=== PATIENT | male | born 1985 | race Caucasian/White ===

== ENCOUNTER 2020-03-29 14:02 | Inpatient (IN) | payer OTHER ==
--- NOTE | 2020-03-29 14:40 | BHS.RME ---
Substance Use & Tx History - Substance Use History Alcohol Substance amount: 2 pints Anne Marie Frequency of use: Daily Substance route: Oral Date of Last Use: 03/29/20 (First use age 15 y. Seizure 3 y ago. Many blackouts, last was last night. 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) Nicotine Substance amount: 1/2 pack Frequency of use: Daily Substance route: Smoking Date of Last Use: 03/29/20 (Began age 15y) - Last Treatment Date of last treatment: December 2017, [facility] Treatment type: Substance Use Disorder (JOVANA) Where was last treatment: Detox Physical/Psych/Mental Status - Behavior General Behavior: Increased activity (restlessness, agitation) Eye Contact: Normal - Cooperativeness Cooperativeness: Cooperative - Thinking Thought Processes: Tight Thought content: Future oriented - Physical Health Problems Is patient presently having any pain?: No Does patient presently have any injuries (include location): No CIWA Nausea/Vomitin Muscle Tremors: 1-None Visible, but [place] Anxiety: 3 Agitation: 3 Paroxysmal Sweats: No Perspiration Orientation: 0-Oriented Tacttile Disturbances: 0-None Auditory Disturbances: 0-None Visual Disturbances: 0-None Headache: 0-None Present CIWA-Ar Total Score: 10
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
[2020-03-29] MEDS ORDERED: chlordiazePOXIDE HCL 25 MG CAPSULE ONE (15:49)
[2020-03-29] MEDS ORDERED: MENTHOL/PHENOL 1 EACH UD MM PRN (15:51)
[2020-03-29] MEDS ORDERED: ACETAMINOPHEN 325 MG TABLET (FP) PO PRN ×2 (15:51)
[2020-03-29] MEDS ORDERED: MAG HYDROX/AL HYDROX/SIMETH 30 ML UNIT-DOSE CUP PO PRN (15:51)
[2020-03-29] MEDS ORDERED: ONDANSETRON *ODT* 4 MG TABLET SL ONE ×2 (15:51→22:56)
[2020-03-29] MEDS ORDERED: MAGNESIUM CITRATE 300 ML BOTTLE PO PRN (15:51)
[2020-03-29] MEDS ORDERED: MAGNESIUM HYDROX 2400MG/30ML ORAL SUSPENSION 30 ML CUP PO PRN (15:51)
[2020-03-29] MEDS ORDERED: NICOTINE POLACRILEX 2 MG GUM BUC PRN (15:51)
[2020-03-29] MEDS ORDERED: METHOCARBAMOL 500 MG TABLET PO PRN (15:51)
[2020-03-29] MEDS ORDERED: chlordiazePOXIDE HCL 25 MG CAPSULE PO PRN (15:51)
[2020-03-29] MEDS ORDERED: IBUPROFEN 400 MG TABLET (FP) PO PRN (15:51)
[2020-03-29] MEDS ORDERED: chlordiazePOXIDE HCL 25 MG CAPSULE PO ONE (15:55)
[2020-03-29] MEDS ORDERED: chlordiazePOXIDE HCL 25 MG CAPSULE PO SCH (17:00)
[2020-03-29 17:42] VITALS: BMI 35.6
[2020-03-29] MEDS: hydrOXYzine PAMOATE 25 MG CAPSULE (FP) PO SCH ×2 (18:31→22:14)
[2020-03-29] MEDS: PRENATAL VITAMINS W/ FOLIC ACID TABLET (FP) PO SCH (18:31)
[2020-03-29] MEDS: NICOTINE 7 MG/24 HOURS TOPICAL PATCH TD SCH (18:32)
[2020-03-29] MEDS ORDERED: MELATONIN 5 MG TABLETS PO SCH (22:00)
[2020-03-29] MEDS ORDERED: THIAMINE HCL 100 MG TABLET (FP) PO SCH (22:00)
[2020-03-29] MEDS: chlordiazePOXIDE HCL 25 MG CAPSULE PO SCH (22:14)
--- NOTE | 2020-03-29 22:58 | PN ---
BHS Progress Note Note: Patient is complaining of nausea. Denies vomiting at this time Vital Signs Temperature 97.5 F L 03/29/20 20:57 Pulse Rate 65 03/29/20 20:57 Respiratory Rate 18 03/29/20 20:57 Blood Pressure 138/97 03/29/20 20:57 O2 Sat by Pulse Oximetry (%) 96 03/29/20 20:57 Action: Ondansetron (Zofran Odt) 4mg sublingual ordered
[2020-03-29] MEDS: BISMUTH SUBSALICYLATE 524 MG/30 ML UD PO PRN (23:21)
[2020-03-30] MEDS: hydrOXYzine PAMOATE 25 MG CAPSULE (FP) PO SCH ×3 (05:00→14:53)
[2020-03-30] MEDS: chlordiazePOXIDE HCL 25 MG CAPSULE PO SCH ×2 (05:00→10:19)
[2020-03-30] MEDS: PRENATAL VITAMINS W/ FOLIC ACID TABLET (FP) PO SCH (10:19)
[2020-03-30 10:20] LABS: HEMATOCRIT 47.2 % (35.4-49); HEMOGLOBIN 16.2 GM/dL (11.7-16.9); MCH 32.3 pg (25.7-33.7); MCHC 34.2 g/dl (32.0-35.9); MEAN CELL VOLUME 94.2 fl (80-96); MEAN PLT VOLUME 8.8 fl (7.5-11.1); PLATELET COUNT 172 K/MM3 (134-434); RBC 5.01 M/mm3 (4.00-5.60); RDW 14.8 % (11.9-15.9)
[2020-03-30] MEDS: NICOTINE 7 MG/24 HOURS TOPICAL PATCH TD SCH (10:20)
[2020-03-30 10:36] LABS: ALBUMIN 3.6 g/dl (3.4-5.0); BILIRUBIN,TOTAL 1.7 mg/dL (0.2-1); BLOOD UREA NITROGEN 10.1 mg/dL (7-18); CALCIUM 9.2 mg/dL (8.5-10.1); POTASSIUM 3.5 mmol/L (3.5-5.1); TOT PROT 6.8 g/dl (6.4-8.2)
--- NOTE | 2020-03-30 11:20 | EKG ---
Test Reason : Blood Pressure : / mmHG Vent. Rate : 113 BPM Atrial Rate : 113 BPM P-R Int : 170 ms QRS Dur : 096 ms QT Int : 330 ms P-R-T Axes : 049 012 051 degrees QTc Int : 452 ms SINUS TACHYCARDIA POSSIBLE LEFT ATRIAL ENLARGEMENT ABNORMAL ECG NO PREVIOUS ECGS AVAILABLE Confirmed by VALENCIA MCCORMACK MD ([id number]) on 03/30/2020 11:19:59 AM Referred By: Confirmed By:VALENCIA MCCORMACK MD
[2020-03-30] MEDS: BISMUTH SUBSALICYLATE 524 MG/30 ML UD PO PRN ×2 (12:01→15:21)
[2020-03-30 13:05] VITALS: PULSE 98
--- NOTE | 2020-03-30 13:30 | PN ---
S CIWA - CIWA Score Nausea/Vomitin Muscle Tremors: 2 Anxiety: 2 Agitation: 2 Paroxysmal Sweats: No Perspiration Orientation: 0-Oriented Tacttile Disturbances: 1-Very Mild Itch/Numbness Auditory Disturbances: 0-None Visual Disturbances: 0-None Headache: 1-Very Mild CIWA-Ar Total Score: 10 S Progress Note (SOAP) Subjective: alert,irritable,anxious,interrupted sleep,tremor,aching pain in the body and back Objective: 03/30/20 13:27 Vital Signs Temperature 97.1 F L 03/30/20 12:55 Pulse Rate 98 H 03/30/20 12:55 Respiratory Rate 20 03/30/20 12:55 Blood Pressure 125/87 03/30/20 12:55 O2 Sat by Pulse Oximetry (%) 98 03/30/20 12:55 03/30/20 13:27 Laboratory Last Values WBC 7.0 K/mm3 (4.0-10.0) 03/30/20 08:15 RBC 5.01 M/mm3 (4.00-5.60) 03/30/20 08:15 Hgb 16.2 GM/dL (11.7-16.9) 03/30/20 08:15 Hct 47.2 % (35.4-49) 03/30/20 08:15 MCV 94.2 fl (80-96) 03/30/20 08:15 MCH 32.3 pg (25.7-33.7) 03/30/20 08:15 MCHC 34.2 g/dl (32.0-35.9) 03/30/20 08:15 RDW 14.8 % (11.9-15.9) 03/30/20 08:15 Plt Count 172 K/MM3 (134-434) 03/30/20 08:15 MPV 8.8 fl (7.5-11.1) 03/30/20 08:15 Sodium 138 mmol/L (136-145) 03/30/20 08:15 Potassium 3.5 mmol/L (3.5-5.1) 03/30/20 08:15 Chloride 103 mmol/L (98-107) 03/30/20 08:15 Carbon Dioxide 25 mmol/L (21-32) 03/30/20 08:15 Anion Gap 10 MMOL/L (8-16) 03/30/20 08:15 BUN 10.1 mg/dL (7-18) 03/30/20 08:15 Creatinine 1.0 mg/dL (0.55-1.3) 03/30/20 08:15 Est GFR (CKD-EPI)AfAm 114.91 03/30/20 08:15 Est GFR (CKD-EPI)NonAf 99.15 03/30/20 08:15 Random Glucose 88 mg/dL (74-106) 03/30/20 08:15 Calcium 9.2 mg/dL (8.5-10.1) 03/30/20 08:15 Total Bilirubin 1.7 mg/dL (0.2-1) H 03/30/20 08:15 AST 177 U/L (15-37) H 03/30/20 08:15 ALT 232 U/L (13-61) H 03/30/20 08:15 Alkaline Phosphatase 108 U/L (45-117) 03/30/20 08:15 Total Protein 6.8 g/dl (6.4-8.2) 03/30/20 08:15 Albumin 3.6 g/dl (3.4-5.0) 03/30/20 08:15 Syphilis Serology Non-reactive (NONREACTIVE) 03/30/20 08:15 Assessment: 03/30/20 13:28 withdrawal symptom Plan: continue detox librium regimen,elvation of alt,ast,repeat hepatic function in am,encourage oral fluid
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
[2020-03-30 17:00] VITALS: BP 151/99; TEMP 97.7
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
[2020-03-30] MEDS ORDERED: MIRTAZAPINE 15 MG TABLET (FP) PO SCH (22:00)
[2020-03-31] MEDS ORDERED: chlordiazePOXIDE HCL 25 MG CAPSULE PO SCH (05:00)
[2020-04-01] MEDS ORDERED: chlordiazePOXIDE HCL 10 MG CAPSULE PO PRN
[2020-04-01] MEDS ORDERED: chlordiazePOXIDE HCL 10 MG CAPSULE PO SCH (05:00)
[2020-04-02] MEDS ORDERED: chlordiazePOXIDE HCL 10 MG CAPSULE PO SCH (05:00)
[2020-04-03] MEDS ORDERED: chlordiazePOXIDE HCL 10 MG CAPSULE PO ONE (05:00)
== END 2020-03-30 17:59 | disposition left against medical advice (07) | DRG 894 ==
LOC: YASAS 14:02 → Y3N 17:25
PROVIDERS: ADMIT Allergy & Immunology; ATTEND Allergy & Immunology
PROC: HZ2ZZZZ Detoxification Services for Substance Abuse Treatment (ICD-10-PCS; principal; 2020-03-29)
DX: F10.230 Alcohol dependence with withdrawal, uncomplicated (principal); F11.20 Opioid dependence, uncomplicated; F12.10 Cannabis abuse, uncomplicated; F17.210 Nicotine dependence, cigarettes, uncomplicated; F41.1 Generalized anxiety disorder; F32.9 Major depressive disorder, single episode, unspecified; F19.24 Other psychoactive substance dependence with psychoactive substance-induced mood disorder; E66.9 Obesity, unspecified; Z68.35 Body mass index [BMI] 35.0-35.9, adult; Z94.5 Skin transplant status; Z87.438 Personal history of other diseases of male genital organs; Z91.19 Patient's noncompliance with other medical treatment and regimen
CPT/HCPCS: 36415; 80053; 85027; 86780; 93005; 93010; Q0162; U0003

== ENCOUNTER 2023-08-10 09:20 | Day surgery (SDC) | payer BC, OTHER ==
[2023-08-10] MEDS ORDERED: ACETAMINOPHEN 1000 MG/100 ML BAG IVPB ONE (12:12)
[2023-08-10] MEDS ORDERED: SODIUM CHLORIDE 0.9% 500 ML INFUS.BAG IV ONE (12:12)
[2023-08-10] MEDS ORDERED: ACETAMINOPHEN INJECTION 100 ML IVPB ONE (12:35)
[2023-08-10 12:58] LABS: BASO % 0.2 % (0-2.0); EOS % 0.4 % (0-4.5); HEMATOCRIT 48.5 % (35.4-49); HEMOGLOBIN 16.7 GM/dL (11.7-16.9); LYMPH % 8.2 % (8-40); MCH 29.9 pg (25.7-33.7); MCHC 34.4 g/dl (32.0-35.9); MEAN CELL VOLUME 86.9 fl (80-96); MEAN PLT VOLUME 7.4 fl (7.5-11.1); MONO % 7.4 % (3.8-10.2); NEUT % 83.8 % (42.8-82.8); PLATELET COUNT 183 10^3/uL (134-434); RBC 5.58 M/mm3 (4.00-5.60); RDW 13.5 % (11.9-15.9); WHITE BLOOD COUNT 10.6 K/mm3 (4.0-10.0)
[2023-08-10] MEDS ORDERED: morphine CARPU-JECT 4 MG/1 ML DISP.SYRIN IVPUSH ONE (13:01)
[2023-08-10 13:19] LABS: POTASSIUM 3.7 mmol/L (3.5-5.1)
[2023-08-10 13:21] LABS: ALBUMIN 3.4 g/dl (3.4-5.0); BLOOD UREA NITROGEN 19.4 mg/dL (7-18); CALCIUM 8.8 mg/dL (8.5-10.1)
[2023-08-10 13:26] LABS: BILIRUBIN,TOTAL 1.3 mg/dL (0.2-1); TOT PROT 6.6 g/dl (6.4-8.2)
[2023-08-10] MEDS ORDERED: morphine SULFATE 4 MG/ML VIAL ONE (13:29)
[2023-08-10] MEDS ORDERED: PIPERACILLIN/TAZOB 4.5 GM 4.5 GM in DEXTROSE 5%-WATER 100 ML IVPB ONE (15:48)
[2023-08-10] MEDS ORDERED: PIPERACILLIN/TAZOB 4.5 GM 4.5 GM/100 ML BAG IVPB ONE (16:11)
[2023-08-10] MEDS ORDERED: VANCOMYCIN/WATER 2 GRAMS 2,000 MG/400 ML PIGGYBACK IVPB ONE (16:38)
[2023-08-10] MEDS ORDERED: VANCOMYCIN 1 GRAM (PRE-DOCKED) 1,000 MG/250 ML BAG IVPB ONE ×2 (16:54→17:03)
[2023-08-10] MEDS ORDERED: oxyCODONE HCL 5 MG TABLET ONE (17:56)
[2023-08-10] MEDS: oxyCODONE HCL 5 MG TABLET PO PRN ×2 (18:00→23:22)
[2023-08-10 20:10] VITALS: BMI 33.9
[2023-08-10] MEDS: ACETAMINOPHEN 1000 MG/100 ML BAG IVPB PRN (20:48)
[2023-08-11] MEDS: oxyCODONE HCL 5 MG TABLET PO PRN ×2 (03:13→09:35)
[2023-08-11] MEDS: ACETAMINOPHEN 1000 MG/100 ML BAG IVPB PRN (05:51)
[2023-08-11] MEDS ORDERED: VANCOMYCIN/WATER 1250 MG 1,250 MG/250 ML BAG IVPB SCH ×2 (06:00)
[2023-08-11 08:40] LABS: HEMATOCRIT 43.7 % (35.4-49); HEMOGLOBIN 15.2 GM/dL (11.7-16.9); INR 1.25 (0.83-1.09); MCHC 34.8 g/dl (32.0-35.9); MEAN CELL VOLUME 86.2 fl (80-96); MEAN PLT VOLUME 7.5 fl (7.5-11.1); PLATELET COUNT 175 10^3/uL (134-434); PROTHROMBIN TIME (PATIENT) 14.5 SEC (9.7-13.0); RBC 5.07 M/mm3 (4.00-5.60); RDW 13.7 % (11.9-15.9); WHITE BLOOD COUNT 10.2 K/mm3 (4.0-10.0)
[2023-08-11 08:43] LABS: ACTIVATED PTT 31.9 SECONDS (25.2-36.5)
[2023-08-11 09:04] LABS: POTASSIUM 3.7 mmol/L (3.5-5.1)
[2023-08-11 09:08] LABS: CALCIUM 8.4 mg/dL (8.5-10.1)
[2023-08-11 09:09] LABS: BLOOD UREA NITROGEN 12.1 mg/dL (7-18)
[2023-08-11 09:12] LABS: CREATININE 0.9 mg/dL (0.55-1.3)
[2023-08-11] MEDS ORDERED: oxyCODONE HCL 5 MG TABLET PO PRN (10:53)
[2023-08-11] MEDS ORDERED: PIPERACILLIN/TAZOB 3.375 GM 3.375 GM in DEXTROSE 5%-WATER - 50 ML IVPB SCH (14:45)
[2023-08-11] MEDS ORDERED: BUPIVACAINE HCL/PF 0.5% (5MG/ML) 10 ML VIAL ONE (15:55)
[2023-08-11] MEDS ORDERED: FENTANYL CITRATE/PF 50 MCG/ML VIAL ONE ×4 (16:01→17:21)
[2023-08-11] MEDS ORDERED: PROPOFOL 40 ML ONE (16:02)
[2023-08-11] MEDS ORDERED: SUCCINYLCHOLINE CHLORIDE 200 MG/10 ML SYRINGE ONE (16:02)
[2023-08-11] MEDS ORDERED: MIDAZOLAM HCL 2 MG/2 ML SINGLE DOSE VIAL ONE (16:02)
[2023-08-11] MEDS ORDERED: HYDROmorphone HCl 2 MG/ML VIAL ONE (16:08)
[2023-08-11] MEDS ORDERED: PROPOFOL 20 ML ONE (16:09)
[2023-08-11] MEDS ORDERED: BUPIVACAINE HCL/PF 0.5% (5MG/ML) 10 ML VIAL IJ ONE (16:23)
[2023-08-11] MEDS ORDERED: LACTATED RINGERS SOLUTION 1,000 ML IV SCH (17:00)
[2023-08-11] MEDS ORDERED: IBUPROFEN 600 MG TABLET (FP) PO PRN (17:29)
[2023-08-11] MEDS ORDERED: ACETAMINOPHEN 500 MG TABLET (FP) PO PRN (17:29)
[2023-08-11] MEDS ORDERED: ACETAMINOPHEN INJECTION 100 ML IVPB ONE (17:52)
[2023-08-11] MEDS ORDERED: ACETAMINOPHEN 1000 MG/100 ML BAG IVPB ONE ×2 (17:54→17:59)
[2023-08-11] MEDS: PIPERACILLIN/TAZOB 3.375 GM 3.375 GM in DEXTROSE 5%-WATER - 50 ML IVPB SCH (19:18)
[2023-08-11] MEDS: DOCUSATE SODIUM 100 MG CAPSULE (FP) PO SCH (22:36)
[2023-08-11] MEDS: POLYETHYLENE GLYCOL (HEALTHYLAX) 3350 17 GM PACKET PO SCH (22:36)
[2023-08-12] MEDS ORDERED: PIPERACILLIN/TAZOBACTAM 3.375 GM VIAL IVPB ONE (01:05)
[2023-08-12] MEDS: PIPERACILLIN/TAZOB 3.375 GM 3.375 GM in DEXTROSE 5%-WATER - 50 ML IVPB SCH ×3 (01:26→17:13)
[2023-08-12] MEDS: oxyCODONE HCL 5 MG TABLET PO PRN ×3 (05:31→21:31)
[2023-08-12] MEDS: POLYETHYLENE GLYCOL (HEALTHYLAX) 3350 17 GM PACKET PO SCH ×2 (09:20→21:31)
[2023-08-12] MEDS: DOCUSATE SODIUM 100 MG CAPSULE (FP) PO SCH ×2 (09:20→21:31)
[2023-08-12 10:54] LABS: POTASSIUM 3.7 mmol/L (3.5-5.1)
[2023-08-12 10:58] LABS: BASO % 0.1 % (0-2.0); HEMATOCRIT 41.3 % (35.4-49); HEMOGLOBIN 14.4 GM/dL (11.7-16.9); LYMPH % 7.8 % (8-40); MCH 29.8 pg (25.7-33.7); MCHC 34.8 g/dl (32.0-35.9); MEAN CELL VOLUME 85.8 fl (80-96); MEAN PLT VOLUME 7.8 fl (7.5-11.1); MONO % 2.5 % (3.8-10.2); NEUT % 89.6 % (42.8-82.8); PLATELET COUNT 199 10^3/uL (134-434); RBC 4.81 M/mm3 (4.00-5.60); RDW 13.3 % (11.9-15.9); WHITE BLOOD COUNT 9.4 K/mm3 (4.0-10.0)
[2023-08-12 10:59] LABS: BLOOD UREA NITROGEN 16.1 mg/dL (7-18); CALCIUM 8.6 mg/dL (8.5-10.1)
[2023-08-12 11:03] LABS: CREATININE 0.8 mg/dL (0.55-1.3)
[2023-08-12 17:24] VITALS: RESP 18
[2023-08-13] MEDS: PIPERACILLIN/TAZOB 3.375 GM 3.375 GM in DEXTROSE 5%-WATER - 50 ML IVPB SCH ×2 (02:53→09:48)
[2023-08-13] MEDS: DOCUSATE SODIUM 100 MG CAPSULE (FP) PO SCH (09:48)
[2023-08-13] MEDS: POLYETHYLENE GLYCOL (HEALTHYLAX) 3350 17 GM PACKET PO SCH (09:49)
[2023-08-13 15:37] VITALS: BP 111/74; PULSE 90; TEMP 97.9
== END 2023-08-13 15:52 | disposition home or self-care (01) ==
LOC: JER 09:20 → JERBED 15:36 → UNDOADMOB 15:36 → JERBED 19:44 → J8W 19:44 → JASUSAT 08-11 14:18 → J8W 08-11 14:36 → JASUSAT 08-13 15:52
PROVIDERS: ATTEND Nurse Practitioner Family
PROC: 0D9P0ZX Drainage of Rectum, Open Approach, Diagnostic (ICD-10-PCS; principal; 2023-08-11 14:00)
DX: K61.1 Rectal abscess (principal)
CPT/HCPCS: 36415; 71045-TC-FY; 72193-TC; 80048; 80053; 83735; 84439; 84443; 84484; 85025; 85027; 85610; 85730; 87040; 87070; 87186; 87205; 93005; 93010; 94760; 99285-25; Q9967